=== PATIENT | female | born 1985 | race Caucasian/White ===

== ENCOUNTER 2024-11-08 15:21 | Outpatient (CLI) | payer OTHER, SELFPAY ==
--- OUTSIDE RECORDS SUMMARY | 2024-11-08 15:26 | XMS_ITS ---
Author Organization [facility] [employer] Address [address] [place] [address] Care Team Providers Care Closet Builder Name Role Phone Ezio Maldonado MD Primary Care Provider Andrea Marie Unavailable [phone] REASON FOR VISIT 1 month f/u Medications Medication SIG (Take, Route, Frequency, Duration) Notes Start Date End Date Status Vitamin D 25 MCG (1000 UT) 1 tablet Oral ly Once a day Active NAC 500 MG as directed Orally Active hydrOXYzine Pamoate 50 MG 1 capsule Orally three times a day; Duration: 30 days As needed Active FLUoxetine HCl 40 MG TAKE 1 CAPSULE BY M OUTH EVERY DAY; Duration: 90 Active Dicyclomine HCl 20 MG TAKE 1 TABLET BY M OUTH EVERY 6 HOURS. Oral; Duration: 30 Days Active Naltrexone HCl 50 MG 1 tablet Orally Onc e a day; Duration: 30 days Active Doxepin HCl 50 mg Take 1 to 2 capsules by mouth once daily; Duration: 90 days As needed Active ARIPiprazole 20 MG 1 tablet Orally Once a day; Duration: 90 days Active Topiramate 100 MG 1 tablet Oral twice a day; Duration: 90 days Active FLUoxetine HCl 40 MG 1 capsule Oral Once a day; Duration: 90 days Active Social History Tobacco Use: Social History Observation Description Date Details (start date - stop date) Current Smoker NA - NA Sex Assigned At : Social History Observation Description Sex Assigned At Female Tobacco Control (Standard) Question Answer Notes Tobacco use: Current smoker How often do you smoke cigarettes? Every day How many cigarettes a day do you smoke? 5 or les s How soon after you wake up do you smoke your fir st cigarette? After 60 minutes Are you interested in quitting? Not ready to anabela t Encounters Encounter Location Date Provider Diagnosis [facility] [place] [facility] [address] [place] [address] 11/02/2024 Andrea Hogue Nicotine use Z72.0 ; Attention-deficit hyperactivity disorder, combined type F90.2 ; Generalized anxiety disorder F41.1 ; Major depressive disorder, recurrent, mild F33.0 ; Post-traumatic stress disorder, unspecified F43.10 ; Cocaine abuse, uncomplicated F14.10 and Other supervisor intermediates (current) drug therapy Z79.899 Assessments Encounter Date Diagnosis (ICD Code) Assessment Notes Treatment Notes Treatment Clinical Notes Section Notes 11/02/2024 Nicotine use (ICD-10 - Z72.0) 11/02/2024 Attention-deficit hyperactivity disorder, combined type (ICD-10 - F90.2) 11/02/2024 Generalized anxiety disorder (ICD-10 - F41.1) cont fluoxetine 40mg daily 11/02/2024 Major depressive disorder, recurrent, mild (ICD-10 - F33.0) 11/02/2024 Post-traumatic stress disorder, unspecified (ICD-10 - F43.10) 11/02/2024 Cocaine abuse, uncomplicated (ICD-10 - F14.10) N acetylcysteine 1000mg twice daily, topiramate 100mg bid, 11/02/2024 Other residential (current) drug therapy (ICD-10 - Z79.899) doxepin 50mg hs prn Plan Of Treatment Medication Medication Name Sig Start Date Stop Date Notes Naltrexone HCl 50 MG 1 tablet Orally Onc e a day; Duration: 30 days Doxepin HCl 50 mg Take 1 to 2 capsules by mouth once daily; Duration: 90 days ARIPiprazole 20 MG 1 tablet Orally Once a day; Duration: 90 days Topiramate 100 MG 1 tablet Oral twice a day; Duration: 90 days FLUoxetine HCl 40 MG 1 capsule Oral Once a day; Duration: 90 days Treatment Notes Assessment Notes Generalized anxiety disorder cont fluoxe tasha 40mg daily Cocaine abuse, uncomplicated N acetylcys teine 1000mg twice daily, topiramate 100mg bid, Other supervisor intermediates (current) drug therapy d oxepin 50mg hs prn Next Appt Details Follow Up: 4 Weeks, Reason: f/u anxiety, substance use Provider Name:Andrea haddad, 11/30/2024 04:30:00 PM, [address], [address], [place], [address], Progress Notes * CAMILLE PARKEROB: (39 yo F)Acc No.[id number]:11/02/2024 Patient: EDILIA BAHENA Provider: BETY WHARTON :1985 A ge:39 Y S ex:Female Date:11/02/2024 Phone: Address:[address] [place] [address] Rocio Gordon, [id number] Pcp:Ezio Maldonado MD Subjective: * Chief Complaints: * 1 . 1 month f/u. * HPI: D epression Screening: DEEPTHI-7 (2018 Edition) F eeling nervous, anxious, or on edge M ore than half the days N ot being able to stop or control worrying?Several days W orrying too much about different things M ore than hafl the days T rouble relaxing S everal days B eing so restless that it is hard to sit still M ore than half the days B ecoming easily annoyed or irritable S everal days F eeling afraid as if something awful might happen S everal I f you checked any problems, how difficult have they made it for you to do your work, take care of things at home, or get along with other people? S omewhat difficult I nterpretation of Total ( 5 to 9) Mild [place]-Suicide Severity Rating Scale: Suicide Risk (CSRS-screener) i n the past one month Have you wished you were or wished you could go to sleep and not wake up? N o i n the past one month Have you actually had any thoughts of killing yourself? N o D epression screening: PHQ-9 L ittle interest or pleasure in doing things?More than half the days T rouble falling or staying asleep, or sleeping too much S everal days P oor appetite or overeating M ore than half the days F eeling bad about yourself or that you are a failure, or have let yourself or your family down S everal days T rouble concentrating on things, such as reading the newspaper or watching television M ore than half the days M oving or speaking so slowly that other people could have noticed; or the opposite, being so fidgety or restless that you have been moving around a lot more than usual S everal days T houghts that you would be better off or of hurting yourself in some way N ot at all * Medical History: * Social History: T obacco Use: T obacco Control (Standard) T obacco use: C urrent smoker H ow often do you smoke cigarettes? E very day H ow many cigarettes a day do you smoke? 5 or less H ow soon after you wake up do you smoke your first cigarette? A fter 60 minutes A re you interested in quitting? N ot ready to quit M igrated Social History: M igrated Social History: Alcohol Intake: Occasional 09/18/2021,Tobacco Years: Current every day smoker 06/04/2023. M iscellaneous: A dvance Care Planning A re you your own decision-maker Y es D o you have Power of [employer] Performer for Health or Medical? N o * Medications: T aking Vitamin D 25 MCG (1000 UT) Tablet 1 tablet Orally Once a day , Taking NAC 500 MG Capsule as directed Orally , Taking hydrOXYzine Pamoate 50 MG Capsule 1 capsule Orally three times a day As needed, Taking FLUoxetine HCl 40 MG Capsule TAKE 1 CAPSULE BY MOUTH EVERY DAY , Taking Dicyclomine HCl 20 MG Tablet TAKE 1 TABLET BY MOUTH EVERY 6 HOURS. Oral , Taking FLUoxetine HCl 40 MG Capsule 1 capsule Oral Once a day , Taking Topiramate 100 MG Tablet 1 tablet Oral twice a day , Taking ARIPiprazole 20 MG Tablet 1 tablet Orally Once a day , Taking Doxepin HCl 50 mg Capsule Take 1 to 2 capsules by mouth once daily As needed, Taking Naltrexone HCl 50 MG Tablet 1 tablet Orally Once a day , stop date 12/02/2024, Medication List reviewed and reconciled with the patient Objective: * Vitals: Assessment: * Assessment: 1. N icotine use - Z72.0 2 . A ttention-deficit hyperactivity disorder, combined type - F90.2 3 . G eneralized anxiety disorder - F41.1 4 .?Major depressive disorder, recurrent, mild - F33.0 5 . P ost-traumatic stress disorder, unspecified - F43.10 6 . C ocaine abuse, uncomplicated - F14.10? 7. O ther residential (current) drug therapy - Z79.899 Plan: * Treatment: 2. M ajor depressive disorder, recurrent, mild Refill ARIPiprazole Tablet, 20 MG, 1 tablet, Orally, Once a day, 90 days, 90 Tablet, Refills 1.? 3. C ocaine abuse, uncomplicated Refill Topiramate Tablet, 100 MG, 1 tablet, Oral, twice a day, 90 days, 180 Tablet, Refills 1. Notes:N acetylcysteine 1000mg twice daily, topiramate 100mg bid, 4. O ther residential (current) drug therapy Refill Naltrexone HCl Tablet, 50 MG, 1 tablet, Orally, Once a day, 30 days, 30 Tablet, Refills 1.? Notes:doxepin 50mg hs prn * Follow Up: 4 Weeks (Reason: f/u anxiety, substance use) * Billing Information: * Visit Code: 36039 OFFICE OUTPATIENT VISIT 25 MINUTES DETAILED HISTORY AND EXAM/MODERATE MEDICAL DECISION MAKING. * Procedure Codes: * Electronic signature of EBTY Garcia on 11/08/2024 at 03:26 PM CDT Sign off status: Pending * Provider: BETY WHARTON Date: 11/02/2024 Generated for Charles Hood/Opal on: 11/08/2024 03:26 PM CDT History and Physical Notes * HPI (History of Present Illness) Category Sub-Category Detail Notes Category Not es Depression screening PHQ-9 Little inte rest or pleasure in doing things: More than half the days Trouble falling or staying asleep, or sl eeping too much: Several days Poor appetite or overeating: More than h alana the days Feeling bad about yourself o r that you are a failure, or have let yourself or your family down: Several days Trouble concentrating on thi ngs, such as reading the newspaper or watching television: More than half the days Moving or speaking so slowly that other people could have noticed; or the opposite, being so fidgety or restless that you have been moving around a lot more than usual: Several days Thoughts that you would be b mir off or of hurting yourself in some way: Not at all Depression Screening DEEPTHI-7 (2018 Edition) Feelin g nervous, anxious, or on edge: More than half the days Not being able to stop or control worryi ng: Several days Worrying too much about different things : More than hafl the days Trouble relaxing: Several days Being so restless that it is hard to sit still: More than half the days Becoming easily annoyed or irritable: Se veral days Feeling afraid as if something awful morgan ht happen: Several days If you checked any problems, how difficult have they made it for you to do your work, take care of things at home, or get along with other people?: Somewhat difficult Interpretation of Total: (5 to 9) Mild [place]-Suicide Severity Rating Scale Suicide Risk (CSRS-screener) in the past one month Have you wished you were or wished you could go to sleep and not wake up?: No in the past one month Have y ou actually had any thoughts of killing yourself?: No
--- OUTSIDE RECORDS SUMMARY | 2024-11-08 15:27 | XMS_ITS | Clinical Summary ---
Author Organization [facility] [place] [address] Address [address] [place] [address] Care Team Providers Care Broker Associate Name Role Phone Ezio Maldonado MD Primary Care Provider [phone] Allergies Active Allergy Reactions Criticality Noted Date Comments Adhesive Hives,Itching Medium 06/30/2022 Medications topiramate (TOPAMAX) 100 mg tabletIndicatio ns:Binge Eating Disorder Take 1 tablet (100 mg total) by mouth 2 (two) times a day 2 Active ARIPiprazole (ABILIFY) 20 mg tabletIndicatio ns:Depression Treatment Adjunct Take 1 tablet (20 mg total) by mouth daily before breakfast 2 Active doxepin (SINEquan) 50 mg capsule Take 1-2 capsules (50-100 mg total) by mouth nightly as needed for sleep Active FLUoxetine (PROzac) 40 mg capsuleIndicati ons:depression Take 1 capsule (40 mg total) by mouth daily before breakfast Active hydrOXYzine (VISTARIL) 50 mg capsule Take 1 capsule (50 mg total) by mouth 3 (three) times a day as needed for anxiety Active cholecalciferol , vitamin D3, 1,000 unit tablet,chewable Indications:Pre vention of Vitamin D Deficiency Take 1 tablet/chew tab by mouth daily before breakfast Active vitamin b complex tabletIndicatio ns:Vitamin Deficiency Prevention Take 1 tablet by mouth daily before breakfast Active naltrexone (DEPADE) 50 mg tablet Take 1 tablet (50 mg total) by mouth daily 5 Active acidophilus-pec tin, citrus 100 million cell-10 mg capsule Take by mouth daily Active dicyclomine (BENTYL) 20 mg tablet Take 1 tablet (20 mg total) by mouth every 6 (six) hours 120 tablet 11 5 09/15/19 26 Active predniSONE (DELTASONE) 20 mg tablet Take 2 tablets (40 mg) by mouth daily for 20 days, THEN 1 tablet (20 mg) daily for 20 days, THEN 0.5 tablets (10 mg) daily for 20 days. 70 tablet 5 12/09/19 25 Active Active Problems Patient Care Coordination No te Formatting of this note migh t be different from the original. Mechanism of Injury: Unknown- Referral from [facility] ED Dx: Displaced mildly-comminuted intra-articular right radial head fracture. Small associated joint effusion. Surgeries: Right Radial Head Arthroplasty 01/21/24 Last Clinic Visit: 03/06/24 No immobilization needed at this time Script for physical therapy sent Continue nonweightbearing until 12 weeks postoperatively Return to clinic 12 weeks postoperatively, in 6 weeks a. Two views of the right elbow at that time. Clinic Visits cancelled per patient due to weather: 04/24/27 04/28/24 Upcoming Clinic Visit: 05/12/24 Right Elbow XR's (Orders SIgned) NWB Does Insurance Qualify for In Clinic PT? Yes IDPA/IDPA Problem Noted Date Diagnosed Date Tobacco use disorder 01/15/2024 Polysubstance (excluding opioids) dependence, da marj use 01/15/2024 Assessment & Plan (09/24/2024 8:49 PM CDT): Stable, improving; marijuana cocaine use; engage with substance use program Continue topiramate 100 mg b.i.d., naltrexone 50 mg daily Closed displaced fracture of head of right radiu s 01/14/2024 Nondisplaced fracture of nec k of right radius, initial encounter for closed fracture 01/14/2024 Cervical intraepithelial neoplasia grade 1 12/11 Low grade squamous intraepit helial lesion (LGSIL) on cervicovaginal cytologic smear 12/11/2020 GERD (gastroesophageal reflux disease) 9 Mao's esophagus without dysplasia 03/22/2013 Overview (01/14/2024): Date Onset: 2012 Assessment & Plan (09/24/2024 8:50 PM CDT): Intermittent acid reflux; symptoms currently worsened due to tobacco use Encouraged continue tobacco cessation Depression 10/09/2011 Assessment & Plan (09/24/2024 8:50 PM CDT): Stable, has some side effects associated with continued marijuana use which impacts ability to fully evaluate response to therapy Encourage cessation of marijuana Encourage cognitive behavioral therapy Continue topiramate 100 mg b.i.d., fluoxetine 40 mg daily, doxepin 50 mg nightly; Abilify 20 mg daily Anxiety disorder 10/09/2011 Ulcerative colitis 10/09/2011 Assessment & Plan (09/24/2024 8:49 PM CDT): Not well controlled; appears to be having current flares; including abdominal pain cramping rectal bleeding Would recommend follow-up with GI for referral; continue dicyclomine 20 mg prn for cramping; start prednisone 50 mg daily to reduce inflammation and help with the acute symptoms until able to follow up with GI for long-term treatment options Encounters Date Type Department Care Team Description 11/08/2024 Orders Only [facility] Orthopedic Trauma [facility] 4th Floor [address] [place] [address] Delaney Myles NP Closed displaced fracture of head of right radius with routine healing, subsequent encounter (Primary Dx) 10/31/2024 Results [facility]-Up [facility] [address] [place] [address] Ezio Maldonado MD Hepatitis C antibody Blood, Comprehensive metabolic panel, CBC with auto differential, Additional followed-up results: 3 10/16/2024 8:10 AM CDT Lab [facility] [address] [place] [address] Encounter for hepatitis C screening test for low risk patient; Encounter to establish care with new doctor 10/05/2024 Telephone [facility] G[facility]ology at [address] [place] [address] Lake Ruiz MA 10/05/2024 Telephone [facility] at [address] [place] [address] Daksha Bailey 10/05/2024 Telephone [facility] Gastroenter[facility] at [address] [place] [address] Nabila Key MA 09/18/2024 Telephone [facility] at [address] [place] [address] Rose Key 09/14/2024 4:00 PM CDT Office Visit [facility] [address] [address] Ezio Maldonado MD 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); Encounter for hepatitis C screening test for low risk patient; Encounter to establish care with new doctor; Polysubstance (excluding opioids) dependence, daily use (HCC); Recurrent major depressive disorder, in partial remission; Mao's esophagus without dysplasia 09/14/2024 Documentation [facility] [address] [place], [place] [phone] Paul Geller from Last 3 Months Immunizations Immunization Administration Dates Next Due DTaP / IPV 11/06/1988 DTaP, Unspecified 10/04/1991, 9,01/29/1987,11/23,1986 Hep B, Unspecified 08/28/1996,03/27/1996, 996 Influenza, Trivalent, IM (MDV) 02/07/2014,2012 Influenza, Trivalent, Preser vative Free, Intramuscular 04/04/2015 Influenza, Unspecified 01/17/2022,01/17/2018,05/2015 MMRV 10/04/1991,11/14/1987 Moderna SARS-CoV-2 Monovalen t Vaccination (12+ YRS) 05/13/2020,04/12/2020 Moderna Sars-cov-2 Bivalent Vaccine 50 Mcg/0.5 mL (12+ YRS)-[place] 06/30/2022 OPV, Unspecified 11/07/1991, 7,1986,09/21 TD Preservative Free 01/16/2002 Tdap 02/21/2014 Surgical History Surgery Date Site/Laterality Comments COLONOSCOPY 04/19/2018 - 04/18/2019 Medical History Medical History Date Comments Ulcerative colitis (HCC) 2004 Hypertension Family History Medical History Relation Name Comments Hypertension Father Hypertension Maternal Grandfather Hypertension Maternal Grandmother Hypertension Mother Diabetes Other Hypertension Paternal Grandfather Hypertension Paternal Grandmother Anesthesia problems Neg Hx Relation Name Status Comments Father Maternal Grandfather Maternal Grandmother Mother Other Paternal Grandfather Paternal Grandmother Social History Tobacco Use Types Packs/Day Years Used Date Smoking Tobacco: Every Day Cigarettes 0.3 17.6 Started: 2007 Smokeless Tobacco: Never Tobacco Cessation:Ready to Q uit: Not Asked; Counseling Given: Not Answered Alcohol Use Standard Drinks/Week Comments No 0 (1 standard drink = 0.6 oz pur e alcohol) AUDIT-C Answer Date Recorded Q1: How often do you have a drink containing alcohol? Never 09/14/2024 Q2: How many drinks containi ng alcohol do you have on a typical day when you are drinking? Patient does not drink Q3: How often do you have si x or more drinks on one occasion? Never 09/14/2024 PHQ-2 Answer Date Recorded PHQ-2 Total Score (If total score is 3 or more points, staff should administer the PHQ-9) 2 09/14/2024 Hunger Vital Sign Answer Date Recorded Within the past 12 months, y ou worried that your food would run out before you got the money to buy more. Never true 05/12/19 25 Within the past 12 months, t he food you bought just didn't last and you didn't have money to get more. Never true 05/12/2024 Comments No Sex and Gender Information Value Date Recorded Sex Assigned at Not on file Legal Sex Female 10:10 AM [employer]YSTER BU[employer]ER Gender Identity Female 01/24/2024 10:31 AM CDT Sexual Orientation Not on file Obstetrics History Last Filed Vital Signs Vital Sign Reading Time Taken Comments Blood Pressure 134/80 09/14/2024 3:53 PM CDT Pulse 110 09/14/2024 3:53 PM CDT Temperature 36.5 C (97.7 F) 09/14/2024 3:53 PM CDT Respiratory Rate 18 09/14/2024 3:53 PM CDT Oxygen Saturation 99% 09/14/2024 3:53 PM CDT Inhaled Oxygen Concentration - - Weight 75.3 kg (166 lb) 09/14/2024 3:53 PM CDT Height 165.1 cm (5' 5) 09/14/2024 3:53 PM CDT Body Mass Index 27.62 09/14/2024 3:53 PM CDT Plan of Treatment Upcoming Encounters Date Type Department Care Team (Late st Contact Info) Description 12/11/2024 12:00 PM CDT Hospital Encounter [address] [address] Farooq Alves DO 4 [facility] [place] [address] [place] [address] 12/11/2024 12:00 PM CDT - 12/11/2024 12:30 PM CDT Surgery [address] [address] Farooq Alves DO [address] [facility] [address] RAYMUNDO [address] [place] [address] COLONOSCOPY Scheduled Procedures Name Priority Associated Diagnoses Date/Ti me COLONOSCOPY Ulcerative rectosigmoiditis with rectal bleeding (HCC) 12/11/2024 12:00 PM CDT Health Maintenance Due Date Last Done Comments Cervical Cancer Screening 1986 Regular Well Visit/Exam 18-64 2004 Pneumococcal vaccine <65 (1 of 2 - PCV) 2005 Covid-19 Vaccine ( - season) 2023 06/30/2022, 05/13/2020, 04/12/2020 DTaP/Tdap/Td Vaccine (7 - Td or Tdap) 02/22/2024 02/21/2014, 01/16/2002, 10/04/1991, Additional history exists Influenza Vaccine (#1) 2024 2, 01/17/2018, 02/19/2016, Additional history exists Depression Screening 09/14/2025 09/14/2024 Varicella Vaccines Completed 10/04/1991, 11/14/1987 Hepatitis B Screening Completed 08/28/1996 , 03/27/1996, 02/21/1996 Hepatitis C Screening Completed 10/16/2024 HPV Vaccines Aged Out No longer eligi ble based on patient's age to complete this topic Medical Devices Implanted Type Area Corporate Services Manager Device Identifier Shelf Expiration Date Model / Serial / Lot [employer] Evolve 5.5mm Modular Head Elbow Standard Stem Radial Proline 496-S055 - [id number] Implanted:Qty: 1 on 01/21/2024 by Tereza Crisostomo MD at [facility] Right: [employer]eland [employer] [id number] 03/01/2031 [id number] / / [id number] [employer] Evolve 20mm Modular Elbow Standard Head Radial Proline 496-H020 - [id number] Implanted:Qty: 1 on 01/21/2024 by Tereza Crisostomo MD at [facility] Right: [employer]eland [employer] [id number] 09/07/2031 [id number] / / [id number] Procedures Procedure Name Priority Date/Time Associated Diagnosis Comments EGFR Routine 10/16/2024 8:12 AM CDT Encounter to establish care with new doctor DIFFERENTIAL AUTO Routine 10/16/2024 8:1 2 AM CDT Encounter to establish care with new doctor LIPID PANEL Routine 10/16/2024 8:12 AM CDT Encounter to establish care with new doctor CBC WITH AUTO DIFFERENTIAL Routine 10/16/2024 8:12 AM CDT Encounter to establish care with new doctor COMPREHENSIVE METABOLIC PANEL Routine 10/16/2024 8:12 AM CDT Encounter to establish care with new doctor HEPATITIS C ANTIBODY Routine 10/16/2024 8:12 AM CDT Encounter for hepatitis C screening test for low risk patient from Last 3 Months Results * eGFR (10/16/2024 8:12 AM CDT) eGFR 90 >=60 mL/min/1. 73 m2 Comment: Interpretive Data Reference Interval Normal >/= 90 mL/min/1.73m2 Mildly decreased* 60 - 89 mL/min/1.73m2 Mildly to moderately decreased 45 - 59 mL/min/1.73m2 Moderately to severely decreased 30 - 44 mL/min/1.73m2 Severely decreased 15 - 29 mL/min/1.73m2 Kidney Failure < 15 mL/min/1.73m2 *Relative to young adult level Estimated glomerular filtration rate is determined by the 2020 CKD-EPI equation recommended by the National Kidney Foundation (A Unifying Approach to GFR Estimation: Recommendations of the NKF-ASK Task Force on Reassessing the Inclusion of Race in Diagnosing Kidney Disease, JASN 2020). The CKD-EPI equation should not be used for patients with unstable renal function and has not been validated in children and those over 70. Current interpretive data was last reviewed 2021. Testing performed by: [address] [address] Blood 10/16/2024 8:12 AM CDT 10/16/2024 2:14 PM CDT us Ezio Maldonado MD LAB BLOOD ORDERABLES Bren dsouza Result [facility] ([place]) 1 [facility] [place] [address] * Differential, auto (10/16/2024 8:12 AM CDT) Neutrophil abs 4.07 1.50 - 6.50 K/cumm Comment:Testing performed by : [facility], [address] [place] [address]., [address] Imm gran abs 0.03 0.00 - 0.10 K/cumm [facility] ([place]) Comment:Testing performed by : [facility], [address] [place] [address]., [address] Lymphocyte abs 2.24 0.80 - 3.30 K/cumm [facility] ([place]) Comment:Testing performed by : [facility], [address] [place] [address]., [address] Monocyte abs 0.43 0.20 - 0.80 K/cumm [facility] ([place]) Comment:Testing performed by : [facility], [address] [place] [address]., [address] Eosinophil abs 0.21 0.00 - 0.50 K/cumm [facility] ([place]) Comment:Testing performed by : [facility], [address] [place] [place] [address]., [address] Basophil abs 0.05 0.00 - 0.10 K/cumm [facility] ([place]) Comment:Testing performed by : [facility], [address] [place] [address]., [address] Neutrophil pct 57.9 % [facility] ([place]) Comment: Interpretive Data Percent cell count reference ranges are not reported, since discordance with absolute values may lead to misinterpretation of CBC data. Current Interpretive Data was last revised on 2017. Testing performed by: [facility], [address] [place] [address]., [address] Imm gran pct 0.4 % [facility] ([place]) Comment: Interpretive Data Percent cell count reference ranges are not reported, since discordance with absolute values may lead to misinterpretation of CBC data. Current Interpretive Data was last revised on 2017. Testing performed by: [facility], [address] [place] [address]., [address] Lymphocyte pct 31.9 % [facility] ([place]) Comment: Interpretive Data Percent cell count reference ranges are not reported, since discordance with absolute values may lead to misinterpretation of CBC data. Current Interpretive Data was last revised on 2017. Testing performed by: [facility], [address] [place] [address]., [address] Monocyte pct 6.1 % [facility] ([place]) Comment: Interpretive Data Percent cell count reference ranges are not reported, since discordance with absolute values may lead to misinterpretation of CBC data. Current Interpretive Data was last revised on 2017. Testing performed by: [facility], [address] [place] [address]., [address] Eosinophil pct 3.0 % [facility] ([place]) Comment: Interpretive Data Percent cell count reference ranges are not reported, since discordance with absolute values may lead to misinterpretation of CBC data. Current Interpretive Data was last revised on 2017. Testing performed by: [address] [address] Basophil pct 0.7 % [facility] ([place]) Comment: Interpretive Data Percent cell count reference ranges are not reported, since discordance with absolute values may lead to misinterpretation of CBC data. Current Interpretive Data was last revised on 2017. Testing performed by: [address], [address] Blood 10/16/2024 8:12 AM CDT 10/16/2024 2:01 PM CDT Ezio Maldonado MD LAB BLOOD ORDERABLES Bren dsouza Result [facility] ([place]) 1 [facility] [place] [address] * CBC with auto differential (10/16/2024 8:12 AM CDT) WBC 7.03 3.80 - 9.90 K/cumm Comment:Testing performed by : [address] [address] Hgb 14.0 11.9 - 15.5 g/dL [facility] ([place]) Comment:Testing performed by : [address], [address] Hct 41.9 35.6 - 45.5 % [facility] ([place]) Comment:Testing performed by : [address] [address] Plt 316 150 - 400 K/cumm [facility] ([place]) Comment:Testing performed by : [address], [address] MPV 10.4 9.1 - 12.3 fL [facility] ([place]) Comment:Testing performed by : [address], [address] RBC 4.48 3.90 - 5.20 M/cumm [facility] ([place]) Comment:Testing performed by : [facility], [address] [place] [address]., [address] MCV 93.5 81.3 - 96.4 fL [facility] ([place]) Comment:Testing performed by : [facility], [address] [place] [address]., [address] MCH 31.3 27.1 - 33.3 pg [facility] ([place]) Comment:Testing performed by : [facility], [address] [place] [address], [address] MCHC 33.4 32.3 - 35.7 g/dL [facility] ([place]) Comment:Testing performed by : [facility], [address] [place] [address], [address] RDW CV 13.5 11.1 - 14.9 % [facility] ([place]) Comment:Testing performed by : [facility], [address] [place] [address], [address] RDW SD 46.1 35.7 - 48.1 fL [facility] ([place]) Comment:Testing performed by : [facility], [address] [place] [address], [address] NRBC abs 0.00 0.00 - 0.01 K/cumm [facility] ([place]) Comment:Testing performed by : [address], [address] Blood 10/16/2024 8:12 AM CDT 10/16/2024 2:01 PM CDT Ezio Maldonado MD LAB BLOOD ORDERABLES Bren dsouza Result [facility] ([place]) 1 [facility] [place] [address] * Hepatitis C antibody Blood (10/16/2024 8:12 AM CDT) Pathologist [facility] Hep C Ab Nonreactive Nonreactive Comment: Interpretive Data Nonreactive: Antibodies to HCV not detected. Does NOT exclude the possibility of recent exposure to HCV. Equivocal: Equivocal for HCV antibodies. Supplemental molecular testing will be automatically performed to determine infection status in accordance with current CDC screening recommendations. Reactive: Positive for HCV antibodies. This may represent current or past HCV infection. Supplemental molecular testing will be automatically performed to determine current infection status in accordance with current CDC screening recommendations. Interpretive data was last revised on 2019. Testing performed by: [facility], [address] [place] [address]., [address] Blood 10/16/2024 8:12 AM CDT 10/16/2024 2:01 PM CDT Ezio Maldonado MD LAB MICROBIOLOGY - GENERA L ORDERABLES Final Result [facility] ([place]) 1 [facility] [place] [address] * Lipid panel (10/16/2024 8:12 AM CDT) Cholesterol 191 30 - 199 mg/dL Comment: Interpretive Data Ages < or = 19 years Acceptable: <170 mg/dL Borderline high: 170-199 mg/dL High: >or= 200 mg/dL Ages > or = 20 years Desirable: <200 mg/dL Borderline high: 200-239 mg/dL High: >or= 240 mg/dL Literature References: 1. Expert Panel on Integrated Guidelines for Cardiovascular Health and Risk Reduction in Children and Adolescents. Pediatrics 2011;128:S213 2. NCEP Expert Panel. Circulation 2004;110:227 Current Interpretive Data was last revised on 2017. Testing performed by: [facility], [address] [place] [address]., [address] Triglycerides 68 <=149 mg/dL [facility] ([place]) Comment: Interpretive Data Ages < or = 9 years Acceptable: <75 mg/dL Borderline high: 75-99 mg/dL High: >or= 100 mg/dL Ages 10 to 20 years Acceptable: <90 mg/dL Borderline high: 90-129 mg/dL High: >or= 130 mg/dL Ages > or = 20 years Desirable: <150 mg/dL Borderline high: 150-199 mg/dL High: 200-499 mg/dL Very high: >or= 499 mg/dL Literature References: 1. Expert Panel on Integrated Guidelines for Cardiovascular Health and Risk Reduction in Children and Adolescents. Pediatrics 2011;128:S213 2. NCEP Expert Panel. Circulation 2004;110:227 Current Interpretive Data was last revised on 2017. Testing performed by: [facility], [address] [place] [address]., [address] HDL 54 >=40 mg/dL [facility] ([place]) Comment: Interpretive Data Ages < or = 19 years Acceptable: >45 mg/dL Borderline low: 40-45 mg/dL Low: <40 mg/dL Ages > or = 20 years Desirable: >or= 60 mg/dL Low: <40 mg/dL Literature References: 1. Expert Panel on Integrated Guidelines for Cardiovascular Health and Risk Reduction in Children and Adolescents. Pediatrics 2011;128:S213 2. NCEP Expert Panel. Circulation 2004;110:227 Current Interpretive Data was last revised on 2017. Testing performed by: [address] [address] LDL, calculated 124 <=129 mg/dL [facility] ([place]) Comment: Interpretive Data Ages < or = 19 years Acceptable: <110 mg/dL Borderline high: 110-129 mg/dL High: >or= 130 mg/dL Ages > or = 20 years Optimal: <100 mg/dL Near optimal: 100-129 mg/dL Borderline high: 130-159 mg/dL High: >160 mg/dL Calculated using the Rajesh LDL-C estimating equation. This equation was implemented on 2023. Prior to this date LDL-C was estimated using the Friedewald equation. Literature References: 1. Expert Panel on Integrated Guidelines for Cardiovascular Health and Risk Reduction in Children and Adolescents. Pediatrics 2011;128:S213 2. NCEP Expert Panel. Circulation 2004;110:227 3. Rajesh Rincon et al. ROMEO Cardiol. 2020 August 17;5(5):540-548. doi: 10.1001/jamacardio.2020.0013 Current Interpretive Data was last revised on 2023. Testing performed by: [address] [address] Non-HDL Cholesterol 137 mg/dL [facility] ([place]) Comment: Interpretive Data Ages < or = 19 years Acceptable: <120 mg/dL Borderline high: 120-144 mg/dL High: >145 mg/dL Ages > or = 20 years When triglycerides are >200 mg/dL, Non-HDL cholesterol is a secondary target of therapy with treatment goals that are 30 mg/dL greater than the LDL cholesterol target. Literature References: 1. Expert Panel on Integrated Guidelines for Cardiovascular Health and Risk Reduction in Children and Adolescents. Pediatrics 2011;128:S213 2. NCEP Expert Panel. Circulation 2004;110:227 Current Interpretive Data was last revised on 2017. Testing performed by: [address] [address] Chol/HDL ratio 4 [facility] ([place]) Comment:Testing performed by : [address] [address] Blood 10/16/2024 8:12 AM CDT 10/16/2024 2:01 PM CDT us Ezio Maldonado MD LAB BLOOD ORDERABLES Bren dsouza Result [facility] ([place]) 1 [facility] [place] [address] * (ABNORMAL) Comprehensive metabolic panel (10/16/2024 8:12 AM CDT) Sodium 137 135 - 145 mmol/L Comment:Testing performed by : [address] [address] Potassium, pl 3.5 3.3 - 4.9 mmol/L [facility] ([place]) Comment:Testing performed by : [address] [address] Chloride 106 97 - 110 mmol/L [facility] ([place]) Comment:Testing performed by : [address] [address] CO2 20(L) 22 - 32 mmol/L [facility] ([place]) Comment:Testing performed by : [address] [address] Anion gap 11 2 - 15 mmol/L [facility] ([place]) Comment:Testing performed by : [address], [address] BUN 12 6 - 25 mg/dL [facility] ([place]) Comment:Testing performed by : [address] [address] Creatinine 0.85 0.60 - 1.10 mg/dL [facility] ([place]) Comment:Testing performed by : [address] [address] Glucose 122 70 - 199 mg/dL [facility] ([place]) Comment: Interpretive Data Fasting glucose >/= 126 mg/dl is diagnostic for diabetes. Fasting is defined as no caloric intake for at least 8 hours. Fasting glucose between 100 mg/dl to 125 mg/dl is diagnostic of prediabetes. In a patient with classic symptoms of hyperglycemia or hyperglycemic crisis, a random glucose >/= 200 mg/dl is diagnostic for diabetes. In the absence of unequivocal hyperglycemia, results should be confirmed by repeat testing. The classification and Diagnosis of Diabetes Diabetes Care 2021; 46: S19-S40. Current interpretive data was last revised 2022. Testing performed by: [address], [address] Calcium 8.5 8.5 - 10.3 mg/dL [facility] ([place]) Comment:Testing performed by : [address], [address] Bilirubin, total 0.2 0.1 - 1.2 mg/dL [facility] ([place]) Comment:Testing performed by : [address], [address] Protein, pl 7.1 6.5 - 8.5 g/dL [facility] ([place]) Comment:Testing performed by : [address], [address] Albumin 4.1 3.5 - 5.0 g/dL [facility] ([place]) Comment:Testing performed by : [address] [address] Alk phos 80 40 - 130 Units/L [facility] ([place]) Comment:Testing performed by : [address], [address] ALT 19 7 - 45 Units/L [facility] ([place]) Comment:Testing performed by : [address], [address] AST 25 10 - 45 Units/L [facility] ([place]) Comment:Testing performed by : [facility], [address] [place] [address], [place] [address] Blood 10/16/2024 8:12 AM CDT 10/16/2024 2:01 PM CDT Ezio Maldonado MD LAB BLOOD ORDERABLES Bren dsouza Result NEIDA KARINE ([place]) 1 [facility] [place] [address] from Last 3 Months Insurance [employer] [place] HMO/POS AETNA [facility] Care Teams Broker Associate Relationship Specialty Start Date End Date Ezio Maldonado MD [address] [place] [address] [place] [address] PCP - General Family Medicine 09/14/24
--- OUTSIDE RECORDS SUMMARY | 2024-11-08 15:27 | XMS_ITS | Referral Summary ---
Author Organization [facility] [place] [address] Address [address] [place] [address] Care Team Providers Care Power System Dispatcher Name Role Phone Ezio Maldonado MD Primary Care Provider [phone] Encounters Date Type Department Care Team Description 11/08/2024 Orders Only Specialty Care Clinic Orthopedic Trauma [facility] Health 4th Floor [address] [place] [address] Delaney Myles NP Closed displaced fracture of head of right radius with routine healing, subsequent encounter (Primary Dx) 10/31/2024 Results [facility]Up [facility] [address] [address] Ezio Maldonado MD Hepatitis C antibody Blood, Comprehensive metabolic panel, CBC with auto differential, Additional followed-up results: 3 10/16/2024 8:10 AM CDT Lab [facility] [address] [place] [phone] Encounter for hepatitis C screening test for low risk patient; Encounter to establish care with new doctor 10/05/2024 Telephone [facility] G[facility]ology at [address] [place] [address] Lake Ruiz MA 10/05/2024 Telephone [facility] G[facility] at [address] [place] [address] Daksha Bailey 10/05/2024 Telephone [facility] G[facility]enter[facility] at [address] [place] [phone] Nabila Key MA 09/18/2024 Telephone [facility] at [address] [place] [phone] Rose Key 09/14/2024 Documentation [facility] Warm Hand Off Program [address] [place], [place] [phone] Paul Geller 09/14/2024 4:00 PM CDT Office Visit [facility] [address] [address] Ezio Maldonado MD 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 [address] [place] [address] 12/11/2024 12:00 PM CDT - 12/11/2024 12:30 PM CDT Surgery [address] [address] Farooq Alves, [address] [facility] [address] [place] [address] COLONOSCOPY Scheduled Procedures Name Priority Associated Diagnoses Date/Ti me COLONOSCOPY Ulcerative rectosigmoiditis with rectal bleeding (HCC) 12/11/2024 12:00 PM CDT Medical Devices Implanted Type Area Supervisor Fishing Device Identifier Shelf Expiration Date Model / Serial / Lot [employer] Evolve 5.5mm Modular Head Elbow Standard Stem Radial Proline 496-[id number] - [id number] Implanted:Qty: 1 on 01/21/2024 by Tereza Crisostomo MD at [facility] Right: [employer] [id number] 03/01/2031 496-[id number] / / [id number] [employer] Evolve 20mm Modular Elbow Standard Head Radial Proline 496-[id number] - [id number] Implanted:Qty: 1 on 01/21/2024 by Tereza Crisostomo MD at [facility] Right: [employer] [id number] 09/07/2031 [id number] / / [id number] Procedures Procedure Name Priority Date/Time Associated Diagnosis [...] was last reviewed 2021. Testing performed by: [facility], [id number] [place] [address], [place] [address] Blood 10/16/2024 8:12 AM CDT 10/16/2024 2:14 PM CDT us Ezio Maldonado MD LAB BLOOD ORDERABLES Bren dsouza Result [facility] ([place]) 1 [facility] Department [place] [address] * Differential, auto (10/16/2024 8:12 AM CDT) Neutrophil abs 4.07 1.50 - 6.50 K/cumm Comment:Testing performed by : [facility], [address] [place] [address]., [address] Imm gran abs 0.03 0.00 - 0.10 K/cumm [facility] ([place]) Comment:Testing performed by : [facility], [address] [place] [address]., [address] Lymphocyte abs 2.24 0.80 - 3.30 K/cumm [facility] ([place]) Comment:Testing performed by : [address], [address] Monocyte abs 0.43 0.20 - 0.80 K/cumm [facility] ([place]) Comment:Testing performed by : [address], [address] Eosinophil abs 0.21 0.00 - 0.50 K/cumm [facility] ([place]) Comment:Testing performed by : [facility], [address] [place] [address]., [address] Basophil abs 0.05 0.00 - 0.10 K/cumm [facility] ([place]) Comment:Testing performed by : [address], [address] Neutrophil pct 57.9 % [facility] ([place]) Comment: Interpretive Data Percent cell count reference ranges are not reported, since discordance with absolute values may lead to misinterpretation of CBC data. Current Interpretive Data was last revised on 2017. Testing performed by: [facility], [address] [place] [address]., [address] Imm gran pct 0.4 % [facility] ([place]) Comment: Interpretive Data Percent cell count reference ranges are not reported, since discordance with absolute values may lead to misinterpretation of CBC data. Current Interpretive Data was last revised on 2017. Testing performed by: [address], [address] Lymphocyte pct 31.9 % [facility] ([place]) Comment: Interpretive Data Percent cell count reference ranges are not reported, since discordance with absolute values may lead to misinterpretation of CBC data. Current Interpretive Data was last revised on 2017. Testing performed by: [facility], [address] [place] [address]., [address] Monocyte pct 6.1 % NEIDA MILTON ([place]) Comment: Interpretive Data Percent cell count reference ranges are not reported, since discordance with absolute values may lead to misinterpretation of CBC data. Current Interpretive Data was last revised on 2017. Testing performed by: [facility], [address] [place] [address]., [address] Eosinophil pct 3.0 % CERNE R KARINE ([place]) Comment: Interpretive Data Percent cell count reference ranges are not reported, since discordance with absolute values may lead to misinterpretation of CBC data. Current Interpretive Data was last revised on 2017. Testing performed by: [address], [address] Basophil pct 0.7 % NEIDA MILTON ([place]) Comment: Interpretive Data Percent cell count reference ranges are not reported, since discordance with absolute values may lead to misinterpretation of CBC data. Current Interpretive Data was last revised on 2017. Testing performed by: [address] [address] Blood 10/16/2024 8:12 AM CDT 10/16/2024 2:01 PM CDT us Ezio Maldonado MD LAB BLOOD ORDERABLES Bren dsouza Result NEIDA MILTON ([place]) 1 [facility] Department [place] [address] * CBC with auto differential (10/16/2024 8:12 AM CDT) WBC 7.03 3.80 - 9.90 K/cumm Comment:Testing performed by : [address] [address] Hgb 14.0 11.9 - 15.5 g/dL NEIDA MILTON ([place]) Comment:Testing performed by : [address], [address] Hct 41.9 35.6 - 45.5 % [facility] ([place]) Comment:Testing performed by : [address], [address] Plt 316 150 - 400 K/cumm [facility] ([place]) Comment:Testing performed by : [address], [address] MPV 10.4 9.1 - 12.3 fL [facility] ([place]) Comment:Testing performed by : [address], [address] RBC 4.48 3.90 - 5.20 M/cumm [facility] ([place]) Comment:Testing performed by : [address], [address] MCV 93.5 81.3 - 96.4 fL [facility] ([place]) Comment:Testing performed by : [address], [address] MCH 31.3 27.1 - 33.3 pg [facility] ([place]) Comment:Testing performed by : [address], [address] MCHC 33.4 32.3 - 35.7 g/dL [facility] ([place]) Comment:Testing performed by : [address], [address] RDW CV 13.5 11.1 - 14.9 % [facility] ([place]) Comment:Testing performed by : [address], [address] RDW SD 46.1 35.7 - 48.1 fL [facility] ([place]) Comment:Testing performed by : [address], [address] NRBC abs 0.00 0.00 - 0.01 K/cumm [facility] ([place]) Comment:Testing performed by : [address], [address] Blood 10/16/2024 8:12 AM CDT 10/16/2024 2:01 PM CDT Ezio Maldonado MD LAB BLOOD ORDERABLES Bren l Result Performing Organization Address City/[facility] Co de Phone Number NEIDA MILTON [place]) 1 [facility] [place] [address] * Hepatitis C antibody Blood (10/16/2024 8:12 AM CDT) Hep C Ab Nonreactive Nonreactive Comment: Interpretive [...] last revised on 2019. Testing performed by: [address] [address] Blood 10/16/2024 8:12 AM CDT 10/16/2024 2:01 PM CDT Ezio Maldonado MD LAB MICROBIOLOGY - GENERA L ORDERABLES Final Result Performing Organization Address [facility] Co de Phone Number NEIDA MILTON [place]) 1 [facility] [place] [address] * Lipid panel (10/16/2024 8:12 AM CDT) [...] last revised on 2017. Testing performed by: [address] [place] [address] Triglycerides 68 <=149 mg/dL NEIDA MILTON ([place]) [...] last revised on 2017. Testing performed by: [address] [address] HDL 54 >=40 mg/dL NEIDA Lockhart ([place]) [...] last revised on 2017. Testing performed by: [address] [address] LDL, calculated 124 <=129 mg/dL NEIDA MILTON ([place]) Comment: Interpretive Data Ages < or = 19 years Acceptable: <110 mg/dL Borderline high: 110-129 mg/dL High: >or= 130 mg/dL Ages > or = 20 years Optimal: <100 mg/dL Near optimal: 100-129 mg/dL Borderline high: 130-159 mg/dL High: >160 mg/dL Calculated using the Mena LDL-C estimating equation. This equation was implemented on 2023. Prior to this date LDL-C was estimated using the Friedewald equation. Literature References: 1. Expert Panel on Integrated Guidelines for Cardiovascular Health and Risk Reduction in Children and Adolescents. Pediatrics 2011;128:S213 2. NCEP Expert Panel. Circulation 2004;110:227 3. Rajesh M et al. ROMEO Cardiol. 2020 August 17;5(5):540-548. doi: 10.1001/jamacardio.2020.0013 Current Interpretive Data was last revised on 2023. Testing performed by: [facility], [address] [place] [address]., [address] Non-HDL Cholesterol 137 mg/dL NEIDA MILTON ([place]) [...] last revised on 2017. Testing performed by: [facility], [address] [place] [address]., [address] Chol/HDL ratio 4 JOSE MILTON ([place]) Comment:Testing performed by : [facility], [address] [place] [address]., [address] Blood 10/16/2024 8:12 AM CDT 10/16/2024 2:01 PM CDT us Ezio Maldonado MD LAB BLOOD ORDERABLES Bren dsouza Result NEIDA MILTON ([place]) 1 [facility] Department [place] [address] * (ABNORMAL) Comprehensive metabolic panel (10/16/2024 8:12 AM CDT) Sodium 137 135 - 145 mmol/L Comment:Testing performed by : [address] [address] Potassium, pl 3.5 3.3 - 4.9 mmol/L [facility] ([place]) Comment:Testing performed by : [facility], [address] [place] [address]., [address] Chloride 106 97 - 110 mmol/L [facility] ([place]) Comment:Testing performed by : [facility], [address] [place] [address]., [address] CO2 20(L) 22 - 32 mmol/L [facility] ([place]) Comment:Testing performed by : [address], [address] Anion gap 11 2 - 15 mmol/L [facility] ([place]) Comment:Testing performed by : [facility], [address] [place] [address], [address] BUN 12 6 - 25 mg/dL [facility] ([place]) Comment:Testing performed by : [address], [address] Creatinine 0.85 0.60 - 1.10 mg/dL [facility] ([place]) Comment:Testing performed by : [address], [address] Glucose 122 70 - 199 mg/dL CERNER [...] was last revised 2022. Testing performed by: [address] [address] Calcium 8.5 8.5 - 10.3 mg/dL [facility] ([place]) Comment:Testing performed by : [address] [address] Bilirubin, total 0.2 0.1 - 1.2 mg/dL [facility] ([place]) Comment:Testing performed by : [address], [address] Protein, pl 7.1 6.5 - 8.5 g/dL [facility] ([place]) Comment:Testing performed by : [facility], [address] [place] [address]., [address] Albumin 4.1 3.5 - 5.0 g/dL [facility] ([place]) Comment:Testing performed by : [facility], [address] [place] [address]., [address] Alk phos 80 40 - 130 Units/L [facility] ([place]) Comment:Testing performed by : [facility], [address] [place] [address], [address] ALT 19 7 - 45 Units/L [facility] ([place]) Comment:Testing performed by : [facility], [address] [place] [address], [address] AST 25 10 - 45 Units/L [facility] ([place]) Comment:Testing performed by : [facility], [address] [place] [address], [address] Blood 10/16/2024 8:12 AM CDT 10/16/2024 2:01 PM CDT us Ezio Maldonado MD LAB BLOOD ORDERABLES Bren dsouza Result [facility] ([place]) 1 [facility] Department [place] [address] from Last 3 Months Insurance [facility] Care Teams Power System Dispatcher Relationship Specialty Start Date End Date Ezio Maldonado MD [address] [place] [address] PCP - General Family Medicine 09/14/24
--- OUTSIDE RECORDS SUMMARY | 2024-11-08 15:27 | XMS_ITS | Encounter Summary ---
Author Organization [facility] Healthcare Address [address] [place] [address] Care Team Providers Care Cylinder Block Hole Reliner Name Role Phone Ezio Maldonado MD Primary Care Provider [phone] Reason for Referral * Consultation (Routine) - Pending Review Specialty Diagnoses / Procedures Referred By Betsy t Referred To Contact Occupational Therapy Diagnoses Closed displaced fracture of head of right radius with routine healing, [place] [address] [place] [address] [phone] [place] [address] Phone: tel: fax: External Order Referral ID Status Reason Start Date Expiration Date Visits Requested Visits Authorized [id number] Pending Review Specialty Services Required 11/08/2024 12/08/2025 24 24 Question Answer PTRFR OT Evaluate and Treat Therapy options discussed with patient? Yes Location provided for therapy services is: Patient requested/Patient preferred Please select the performing region: External Order [171] # of visits: 24 Comments OT - eval and treat RUE, no restrictions Encounter Details Date Type Department Care Team (Late st Contact Info) Description 11/08/2024 Orders Only Specialty Care Clinic Orthopedic Trauma [address] [place] [address] Health 4th Floor [address] [place] [phone] [place] [address] [place] [address] [phone] [place] [address] Closed displaced fracture of head of right radius with routine healing, subsequent encounter (Primary Dx) Social History Tobacco Use Types Packs/Day Years Used Date Smoking Tobacco: Every Day Cigarettes 0.3 17.6 Started: 2007 Smokeless Tobacco: Never Alcohol Use Standard Drinks/Week Comments No 0 [...] on file 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 Gender Identity Female 01/24/2024 10:31 AM CDT Sexual Orientation Not on file documented as of this encounter Plan of Treatment Upcoming Encounters Date Type Department Care Team (Late st Contact Info) Description 12/11/2024 12:00 PM CDT Hospital Encounter [address] [address] Farooq Alves DO [address] [facility] [address] [place] [address] 12/11/2024 12:00 PM CDT - 12/11/2024 12:30 PM CDT Surgery [address] [address] Farooq Alves DO [address] [facility] [address] [place] [address] COLONOSCOPY Scheduled Procedures Name Priority Associated Diagnoses Date/Ti me COLONOSCOPY Ulcerative rectosigmoiditis with rectal bleeding (HCC) 12/11/2024 12:00 PM CDT Scheduled Referrals Name Type Priority Associated Diagnoses Order Schedule Ambulatory referral order to Occupational Therapy - Outpatient Referral Routine Closed displaced fracture of head of right radius with routine healing, subsequent encounter Ordered: 11/08/2024 documented as of this encounter Visit Diagnoses Diagnosis Ulcerative colitis (HCC)- Primary Unspecified ulcerative colitis Closed displaced fracture of head of right radius with routine healing, subsequent encounter- Primary Ulcerative rectosigmoiditis with rectal bleeding (HCC) documented in this encounter Care Teams Cylinder Block Hole Reliner Relationship Specialty Start Date End Date Ezio Maldonado MD [address] [place] [address] PCP - General Family Medicine 09/14/24 documented as of this encounter
--- OUTSIDE RECORDS SUMMARY | 2024-11-08 15:27 | XMS_ITS | Clinical Summary ---
Author Organization [facility] Address [address] [place] [address] Phone Care Team Providers Care Knot Borer Name Role Phone Provider, None Primary Care Provider Unavailabl e Allergies No known active allergies Medications folic acid (FOLVITE) 1 MG Tablet daily. Active Calcium Carbonate-Vitam in D 300-100 MG-UNIT Capsule daily. Acti ve calcium carbonate (OS-FIDEL) 1250 (500 CA) MG Tablet daily. Active [place] Dextrin ([facility] E[facility] FIBER) Powder Active Lactobacillus (ACIDOPHILUS PO) daily. Active venlafaxine (EFFEXOR-XR) 75 MG CAPSULE SR 24 HR Take 150 mg by mouth daily. Active mesalamine (LIALDA) 1.2 GM Tablet Delayed Response daily. Active ranitidine (ZANTAC) 150 MG Tablet daily. Active polyethylene glycol (MIRALAX) Powder Use entire bottle of 255 grams of miralax for Colon prep as directed by office. 255 g 07/16/2017 Active ALPRAZolam (XANAX) 0.25 MG Tablet Take 0.25 mg by mouth Daily as needed for Anxiety. Active HYDROcodone-radha taminophen (NORCO) 5-325 MG TabletIndicatio ns:Closed displaced fracture of head of right radius, initial encounter Take 1 Tablet by mouth every 8 hours as needed for Moderate or more severe pain. 21 Tablet 01/01/2024 Active Active Problems Problem Noted Date Diagnosed Date Mao's esophagus GERD (gastroesophageal reflux disease) Ulcerative colitis Family History Medical History Relation Name Comments Diabetes Father Hypertension Father Uterine Cancer Maternal Aunt Hypertension Mother Relation Name Status Comments Father Alive Maternal Aunt Mother Alive Social History Tobacco Use Types Packs/Day Years Used Date Smoking Tobacco: Some Days Cigarettes 0.3 5 Smokeless Tobacco: Never Tobacco Cessation:Ready to Q uit: Yes; Counseling Given: Yes Alcohol Use Standard Drinks/Week Comments Yes 2 (1 standard drink = 0.6 oz pur e alcohol) Comments No Sex and Gender Information Value Date Recorded Sex Assigned at Female 03/17/2024 10:59 PM ADVANCED PRACTICE PSYCHIATRIC NURSE Legal Sex Female 12:04 AM CDT Gender Identity Female 03/17/2024 10:59 PM ADVANCED PRACTICE PSYCHIATRIC NURSE Sexual Orientation Not on file Last Filed Vital Signs Vital Sign Reading Time Taken Comments Blood Pressure 142/87 03/17/2024 11:38 PM ADVANCED PRACTICE PSYCHIATRIC NURSE Pulse 120 03/17/2024 11:38 PM ADVANCED PRACTICE PSYCHIATRIC NURSE Temperature 36.8 C (98.2 F) 03/17/2024 10:45 PM ADVANCED PRACTICE PSYCHIATRIC NURSE Respiratory Rate 18 03/17/2024 11:38 PM ADVANCED PRACTICE PSYCHIATRIC NURSE Oxygen Saturation 98% 03/17/2024 11:38 PM ADVANCED PRACTICE PSYCHIATRIC NURSE Inhaled Oxygen Concentration - - Weight 72.6 kg (160 lb) 03/17/2024 10:45 PM ADVANCED PRACTICE PSYCHIATRIC NURSE Height 165.1 cm (5' 5) 03/17/2024 10:45 PM ADVANCED PRACTICE PSYCHIATRIC NURSE Body Mass Index 26.63 03/17/2024 10:45 PM ADVANCED PRACTICE PSYCHIATRIC NURSE Plan of Treatment Health Maintenance Due Date Last Done Comments Hepatitis C Virus (HCV) Screening 1986 Human Papillomavirus (HPV) Immunization (1 - 3-dose series) 2001 Pneumococcal Immunization Combined (1 of 2 - PCV) 2005 Pap Smear 07/10/2007 Cervical Cancer Screening (CCS) 2016 HPV/Cotest 2016 SARS-COV-2 Immunization ( season) 2023 06/30/2022, 04/14/2021, 05/13/2020, Additional history exists Influenza Immunization (#1) 2024 1006/2022, 01/17/2022, 01/17/2018, Additional history exists Respiratory Syncytial Virus (RSV) Immunization (Adult) (1 - 1-dose 75+ series) 2061 Hepatitis B Immunization Completed 997, 03/27/1996, 02/21/1996 DTaP/Tdap/Td Immunization Discontinued 2013, 01/16/2002, 10/04/1991, Additional history exists TdaP Immunization Completed 02/21/2014 Meningococcal Immunization (ACWY) Aged Out No longer eligible based on patient's age to complete this topic Rotavirus Immunization Aged Out No lo nger eligible based on patient's age to complete this topic Insurance [place]ICAID [place] Care Teams Knot Borer Relationship Specialty Start Date End Date Provider, None [place] PCP - General 03/17/24
--- OUTSIDE RECORDS SUMMARY | 2024-11-08 15:27 | XMS_ITS | Clinical Summary ---
Author Organization [facility] Address [address] [place] [address] Care Team Providers Care Hotel General Manager Name Role Phone Arti Park SOFIYA Primary Care Provider [phone] Allergies Active Allergy Reactions Criticality Noted Date Comments Tape Hives,Itching 06/30/2022 Medications Multiple Vitamins-Iron (MULTIVITAMIN/IRO N OR) Take 1 tablet by mouth daily. Active ACETYLCYSTEINE OR Take 1,000 mg by mouth 2 (two) times daily. Active Lactobacillus (ACIDOPHILUS EXTRA STRENGTH) Cap Take 1 tablet daily. Active topiramate (TOPAMAX) 100 MG tablet Take 1 tablet (100 mg total) by mouth 2 (two) times daily. 3 Active doxepin (SINEQUAN) 50 MG capsule Take 1 capsule (50 mg total) by mouth. 4 Active FLUoxetine (PROZAC) 40 MG capsule Take 1 capsule (40 mg total) by mouth daily. 4 Active hydrOXYzine (VISTARIL) 50 MG capsule Take 1 capsule (50 mg total) by mouth 3 (three) times daily as needed. 4 Active gabapentin (NEURONTIN) 100 MG capsule Take 1 capsule (100 mg total) by mouth 3 (three) times daily. Active HYDROcodone-aceta minophen (NORCO) 5-325 MG tablet Take 1 tablet by mouth. 4 Active Aripiprazole 20 MG Tab daily. Take 1 tablet daily. Active B Complex-C Tab tablet Take 1 tablet by mouth daily. Active losartan (COZAAR) 25 MG tabletIndications :Primary hypertension Take 1 tablet (25 mg total) by mouth daily. 90 tablet 5 Active Active Problems Problem Noted Date Diagnosed Date Cervical intraepithelial neoplasia grade 1 12/11 Low grade squamous intraepit helial lesion (LGSIL) on cervicovaginal cytologic smear 12/11/2020 Skin tag 12/11/2020 Tobacco abuse 12/11/2020 GERD (gastroesophageal reflux disease) 9 Ulcerative colitis ([facility]) 05/17/2018 Mao's esophagus 03/22/2013 Overview (05/11/2018): Date Onset: 2012 Urticaria, idiopathic 03/15/2012 Anxiety disorder 10/09/2011 Colitis, ulcerative ([facility]) 10/09/2011 Depression 10/09/2011 Resolved Problems Problem Noted Date Diagnosed Date Resolved Date Marijuana use 12/11/2020 06/30/2022 Immunizations Immunization Administration Dates Next Due Dtap (Generic) 10/04/1991, 9,01/29/1987,1986,1986 Hepatitis B 08/28/1996,03/27/1996,02/21/1996 Influenza (Generic) 01/17/2018,02/19/2016,2012 Influenza Adult (Generic) 01/17/2022,04/2017,04/04/2015,2013,03/22/2013 MMR (Generic) 10/04/1991,11/14/1987 MODERNA COVID-19 (12+) MRNA, LNP-S, PF, 100 MCG/ 0.5 ML DOSE 05/13/2020 Opv 11/07/1991, 7,1986,1986 PFIZER COVID-19 BIVALENT (12 +) mRNA, LNP-S, PF, 30 MCG/0.3 ML DOSE 06/30/2022 Polio Ipv (Generic) 11/06/1988 Td (Tenivac) preservative free 01/16/2002 Tdap (Generic) 02/21/2014 Social History Tobacco Use Types Packs/Day Years Used Date Smoking Tobacco: Every Day Cigarettes Passive Smoke Exposure: Never Smokeless Tobacco: Never Tobacco Cessation:Ready to Q uit: No; Counseling Given: Yes Comments:Provider to marriage counselor minister Alcohol Use Standard Drinks/Week Comments Yes 0 (1 standard drink = 0.6 oz pur e alcohol) AUDIT-C Answer Date Recorded Frequency of Alcohol Consumption Monthly or less 05/24/2020 Average Number of Drinks Not on file 021 Frequency of Binge Drinking Not on file 08/2020 PHQ-2 Answer Date Recorded Patient Health Questionnaire-2 Score 0 10/29/2023 Comments No Sex and Gender Information Value Date Recorded Sex Assigned at Not on file Legal Sex Female 8:13 PM CDT Gender Identity Not on file Sexual Orientation Not on file 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 Not on file Not on file Not on file Last Filed Vital Signs Vital Sign Reading Time Taken Comments Blood Pressure 130/80 01/07/2024 4:35 PM CDT Pulse 107 01/07/2024 4:06 PM CDT Temperature 37.3 C (99.2 F) 01/07/2024 4:06 PM CDT Respiratory Rate 16 01/07/2024 4:06 PM CDT Oxygen Saturation 97% 01/07/2024 4:06 PM CDT Inhaled Oxygen Concentration - - Weight 74.8 kg (165 lb) 01/07/2024 4:06 PM CDT Height 165.1 cm (5' 5) 01/07/2024 4:06 PM CDT Body Mass Index 27.46 01/07/2024 4:06 PM CDT Plan of Treatment Health Maintenance Due Date Last Done Comments EGD-Mao's Surveillance 1986 Hepatitis C 2004 HPV Vaccines (1 - 3-dose SCDM series) 2013 Cervical Cancer Screening Pap Smear (Age 30 to 64) Every 3 Years 03/22/2016 03/22/2013 Cervical Cancer Screening Pap with HPV Testing (Age 30 to 64) Every 5 Years 2016 Cervical Cancer Screening with HPV 2016 Annual Physical 07/01/2023 06/30/2022, 01/18/2020 COVID-19 Vaccine ( season) 2023 06/30/2022, 05/13/2020, 04/15/2020 DTaP, Tdap and Td Vaccines (7 - Td or Tdap) 02/22/2024 02/21/2014, 01/16/2002, 10/04/1991, Additional history exists PHQ-2 (Physician [place]) 04/19/2024 10/29/2023 Pneumococcal Vaccine: Pediatrics (0 to 5 Years) and At-Risk Patients (6 to 49 Years) (1 of 2 - PCV) 11/17/2024 Postponed from 2005 (Per Provider Recommendation) Hepatitis B Vaccines Completed 08/28/1996, 03/27/1996, 02/21/1996 Meningococcal B Vaccine Aged Out No l onger eligible based on patient's age to complete this topic Meningococcal Vaccine Aged Out No arden zaheer eligible based on patient's age to complete this topic RSV Immunizations Under 20 Months Aged Out No longer eligible based on patient's age to complete this topic Procedures Procedure Name Priority Date/Time Associated Diagnosis Comments THINPREP IMAGING PAP REFLEX HPV MRNA E6/E7 Routine 03/22/2013 4:00 PM [employer] TUBE BENDER from Last 3 Months or Most Recently Relevant to Health Maintenance Results * THINPREP IMAGING PAP REFLEX HPV MRNA E6/E7 (03/22/2013 4:00 PM [employer] TUBE BENDER) REFLEX ADDED no [facility] P TO EPIC CONVERSION 03/22/2013 4:00 PM [employer] TUBE BENDER 03/22/2013 4:00 PM [employer] TUBE BENDER Narrative [facility] TO EPIC CONVERSION - 03/30/2013 12:26 PM [employer] TUBE BENDER This lab was migrated from [facility] and may be missing annotations or result text, please check the Media tab for the most complete results. Arti ARRIAZA PATHOLOGY/CYTOLOGY ORDERABLES Final Result [facility] TO EPIC CONVERSION from Last 3 Months or Most Recently Relevant to Health Maintenance Care Teams Hotel General Manager Relationship Specialty Start Date End Date Arti Park FNP [address] [place] [address] [place] [address] PCP - General Nurse Practitioner Family 05/06/18
--- OUTSIDE RECORDS SUMMARY | 2024-11-08 15:27 | XMS_ITS | Encounter Summary ---
Author Organization [facility] Address [address] [place] [address] Phone Care Team Providers Care Facilitator Name Role Phone Renay Osborne NP Primary Care Provider Ezio Maldonado MD Primary Care Provider [phone] Encounter Details Date Type Department Care Team (Late st Contact Info) Description 04/16/2017 Orders Only [facility] ProviderMary MD [address] [place], [place] [id number] Social History Tobacco Use Types Packs/Day Years Used Date Smoking Tobacco: Every Day Cigarettes Smokeless Tobacco: Never Alcohol Use Standard Drinks/Week Comments No 0 (1 standard drink = 0.6 oz pur e alcohol) Comments Unknown Sex and Gender Information Value Date Recorded Sex Assigned at Not on file 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 Gender Identity Female 01/24/2024 10:31 AM CDT Sexual Orientation Not on file documented as of this encounter Plan of Treatment Upcoming Encounters Date Type Department Care Team (Late st Contact Info) Description 12/11/2024 12:00 PM CDT Hospital Encounter [address] [address] Farooq Alves, DO [address] [place] [address] [place] [address] 12/11/2024 12:00 PM CDT - 12/11/2024 12:30 PM CDT Surgery [address] [place] [address] Farooq Alves, DO [address] [facility] [place] [address] COLONOSCOPY Scheduled Procedures Name Priority Associated Diagnoses Date/Ti me COLONOSCOPY Ulcerative rectosigmoiditis with rectal bleeding (HCC) 12/11/2024 12:00 PM CDT documented as of this encounter Procedures Procedure Name Priority Date/Time Associated Diagnosis Comments DISCHARGE LABORATORY CUMULATIVE REPORT 04/16/2017 12:00 AM RECREATION WORKER documented in this encounter Results * DISCHARGE LABORATORY CUMULATIVE REPORT (04/16/2017 12:00 AM RECREATION WORKER) Narrative 04/16/2017 12:00 AM RECREATION WORKER Ordered by an unspecified provider. us Historical Provider LAB BLOOD ORDERABLES Bren l Result documented in this encounter Visit Diagnoses Not on filedocumented in this encounter Additional Health Concerns Infection Onset Date Last Indicated Resolved Time COVID: Suspected 11/24/2019 11/26/2019 11/27/2019 1:52 AM CDT Respiratory Infection (CYNTHIA), contact + droplet Comment:Automatically added due to negative COVID-19 result. 11/27/2019 11/27/2019 12/11/2019 3: 05 AM CDT COVID: Suspected 01/07/2022 01/07/2022 01/08/2022 3:05 AM CDT COVID: Suspected 01/07/2022 01/07/2022 01/08/2022 4:56 AM CDT COVID19 01/07/2022 01/07/2022 01/17/2022 3:05 AM CDT documented as of this encounter Care Teams Facilitator Relationship Specialty Start Date End Date Renay Osborne NP [address] [place] [address] PCP - General Family Medicine 03/07/24 09/13/24 Ezio Maldonado MD [address] [place] [address] PCP - General Family Medicine 09/14/24 documented as of this encounter
--- OUTSIDE RECORDS SUMMARY | 2024-11-08 15:27 | XMS_ITS | Encounter Summary ---
Author Organization [facility] Address [address] [place] [address] Care Team Providers Care Documentation Consultant Name Role Phone Ezio Maldonado MD Primary Care Provider [phone] Encounter Details Date Type Department Care Team (Late st Contact Info) Description 10/31/2024 Results Follow-Up [facility] [address] [place] [address] Ezio Maldonado MD [address] [place] [address] Hepatitis C antibody Blood, Comprehensive metabolic panel, CBC with auto differential, Additional followed-up results: 3 Social History Tobacco Use Types Packs/Day Years [...] money to buy more. Never true 05/12/19 Within the past 12 months, t he food you bought just didn't last and you didn't have money to get more. 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 Gender Identity Female 01/24/2024 10:31 AM CDT Sexual Orientation Not on file documented as of this encounter Plan of Treatment Upcoming Encounters Date Type Department Care Team (Late st Contact Info) Description 12/11/2024 12:00 PM CDT Hospital Encounter [address] [address] Farooq Alves DO [address] [facility] [address] [place] [address] 12/11/2024 12:00 PM CDT - 12/11/2024 12:30 PM CDT Surgery [address] [address] Farooq Alves DO [address] [facility] [address] [place] [address] COLONOSCOPY Scheduled Procedures Name Priority Associated Diagnoses Date/Ti me COLONOSCOPY Ulcerative rectosigmoiditis with rectal bleeding (HCC) 12/11/2024 12:00 PM CDT documented as of this encounter Visit Diagnoses Not on filedocumented in this encounter Care Teams Documentation Consultant Relationship Specialty Start Date End Date Ezio Maldonado MD [place] [address] PCP - General Family Medicine 09/14/24 documented as of this encounter
[2024-11-08 16:35] LABS: Syphilis IgG/IgM Antibody Non-Reactive (Nonreactive)
[2024-11-08 16:39] LABS: Hepatitis B Surface Antigen Negative (Negative)
[2024-11-08 16:45] LABS: HAV RESULT Negative (Negative); Hepatitis B Core IgM Result Negative (Negative)
[2024-11-08 16:48] LABS: HIV 1/2 Ab P24 Ag Result Negative (Negative)
[2024-11-09 07:09] LABS: HSV 1 IgG, Type Spec Non Reactive (Non Reactive); HSV 2 IgG, Type Spec Reactive (Non Reactive)
== END 2024-11-08 15:22 | disposition home or self-care (01) ==
LOC: ANHLAB 15:24
PROVIDERS: PCP Hospitalist; Visit Provider Obstetrics & Gynecology
DX: Z11.3 Encounter for screening for infections with a predominantly sexual mode of transmission (principal)
CPT/HCPCS: 36415; 80074; 86593; 86695; 86696; 86703; G0432